=== PATIENT | female | born 1940 | race African-American/Black ===

== ENCOUNTER 2017-10-10 16:54 | Inpatient (IN) | payer MEDICARE ==
[2017-10-10 18:06] LABS: #Eosinphils 0.3 thou/uL (0.0-0.7); #Lymphocytes 1.5 thou/uL (1.20-3.40); #Monocytes 0.2 thou/uL (0.11-0.59); #Neutrophils 3.3 thou/uL (1.40-6.50); %Basophils 0.9 % (0.0-1.0); %Eosinophils 6.4 % (0.0-10.0); %Lymphocytes 28.1 % (21.0-51.0); %Monocytes 3.4 % (0.0-10.0); %Neutrophils 61.2 % (42.0-75.0); Hemoglobin 8.9 g/dL (12.0-16.0); Mean Corpuscular HGB CONC 30.3 g/dL (32.0-36.0); Mean Corpuscular Hemoglobin 30.7 pg (27.0-31.0); Mean Platelet Volume 8.5 fL (7.4-10.4); Platelet Count 357 thou/uL (130-400); RBC Distribution Width 17.7 % (11.5-14.5); White Blood Cell (WBC) Count 5.4 thou/uL (4.8-10.8)
[2017-10-10 18:12] LABS: INR-International Normal Ratio 1.3; PTT 30.7 SEC (22.9-36.1); Prothrombin Time 16.1 SEC (12.0-14.7)
[2017-10-10 18:14] LABS: D-Dimer Test Less than 0.27 *mcg/mL (0.27-0.43)
[2017-10-10 18:23] LABS: ALT (SGPT) 7 U/L (8-55); AST (SGOT) 7 U/L (5-34); Albumin 3.3 g/dL (3.4-4.8); Alkaline Phosphatase 94 U/L (40-150); Anion Gap 12 mmol/L (10-20); BUN (Urea Nitrogen) 13 mg/dL (9.8-20.1); Bilirubin, Total 0.3 mg/dL (0.2-1.2); CK (CPK) 34 U/L (29-168); Calc. Creatinine Clearance 0 mL/min (70-130); Calcium 8.4 mg/dL (7.8-10.44); Carbon Dioxide 23 mmol/L (23-31); Chloride 110 mmol/L (98-107); Estimated GFR-MDRD 84; Globulin 3.6 g/dL (2.4-3.5); Glucose 69 mg/dL (83-110); Lipase 13 U/L (8-78); Potassium 3.2 mmol/L (3.5-5.1); Protein, Total 6.9 g/dL (6.0-8.3); Sodium 142 mmol/L (136-145)
[2017-10-10 18:26] LABS: CKMB 1.1 ng/mL (0-6.6); Troponin I 0.033 ng/mL (< 0.028)
--- NOTE | 2017-10-10 18:34 | RAD ---
PORTABLE CHEST: 10/10/17 HISTORY: Shortness of breath. Chest pain. Heart size is enlarged. Some linear change in the left lung base. In comparison to a 09/23/17 study, c hanges appear slightly more prominent. Still probably related to scar with atelectasis. No signs of f ailure. IMPRESSION: Linear parenchymal changes in the left lung base slightly more prominent than see non the previous ex am. This is probably a combination of scar and possibly atelectasis or minimal developing infiltrate. POS: ROEBRT
[2017-10-10] MEDS ORDERED: Enoxaparin Sodium 80 MG/0.8 ML SYRINGE SC SCH (21:00)
[2017-10-10] MEDS ORDERED: HYDROcodone/Acetaminophen 5/325 mg Tablet PO PRN ×2 (21:14)
[2017-10-10] MEDS ORDERED: Acetaminophen 325 MG TAB PO PRN ×2 (21:14→21:20)
[2017-10-10] MEDS ORDERED: Ondansetron ODT 4 MG TAB SL PRN (21:14)
[2017-10-10] MEDS ORDERED: Ondansetron HCl/PF 4 MG/2 ML Vial IVP PRN (21:14)
[2017-10-10] MEDS ORDERED: Fentanyl 100 MCG/2 ML VIAL SLOW IVP PRN (21:15)
[2017-10-10] MEDS ORDERED: Nitroglycerin 0.4 MG TAB (25 Tab Bottle) PO PRN (21:20)
[2017-10-10] MEDS ORDERED: HYDROcodone/Acetaminophen 7.5/325 mg Tablet PO PRN (21:20)
[2017-10-10] MEDS ORDERED: Carvedilol 3.125 MG TAB PO SCH (21:30)
[2017-10-10] MEDS ORDERED: Famotidine/PF 20 mg/2ml Vial SLOW IVP SCH (21:30)
[2017-10-10 22:07] LABS: Iron 52 ug/dL (50-170); Iron Binding Capacity, Total 178 mcg/dL (265-497)
[2017-10-10 22:12] LABS: Troponin I 0.036 ng/mL (< 0.028)
[2017-10-10 22:22] VITALS: BMI 29.5
--- NOTE | 2017-10-10 23:00 | HP ---
DATE OF ADMISSION: 10/10/2017 CHIEF COMPLAINT: Chest pain. HISTORY OF PRESENT ILLNESS: This is a 77-year-old -[place] female with known history of mult iple myeloma on chemotherapy at Dr. Dumont. She has been recently started 3 months ago on one of t he chemotherapy medications which seem to have a cardiotoxicity effect which was told by Dr. Dumont to the patient. The patient this morning woke up and she was just lying on the bed and she noted a sudden onset of chest pain on the right side of the precordium was not radiating, associated with jake e nausea. The pain was persistent until this evening. It was very tender on her chest. She denied having any fall or anything on that side. She denied having any cough or congestion or any exposure to sick people. She was recently diagnosed with bronchitis and has been treated with azithromycin fo r almost 2 weeks. She now complains of headache of 7/10 in intensity. Headache is more on the right side, the frontal sinuses and also on the maxillary sinuses on the right side. She has a chest pain , which she says is hurting 4-5/10 and is constant pain as I explained above. The patient had initia l troponin that was mildly elevated to 0.03 and her EKG was normal with mild ST segment changes which are not significant at this time. The patient had a chest x-ray which did not show any evidence of pneumonia. PAST MEDICAL HISTORY: Multiple myeloma. PAST SURGICAL HISTORY: History of hysterectomy many years ago. SOCIAL HISTORY: The patient is not a nonsmoker. No history of alcohol, no history of illicit drug u se. FAMILY HISTORY: The patient has significant family history of her brother dying at the age of 50 wit h massive heart attack. ALLERGIES: No known drug allergies. HOME MEDICATIONS: Home medication had been reviewed and reconciled. Please see the medication list. REVIEW OF SYSTEMS: All 12 systems are reviewed with the patient thoroughly and found to be negative at this time except the ones described in the HPI. Constitutional: Weight loss or gain, sense of we ll-being, ability to conduct usual activities, exercise tolerance. Skin/Breast: Rash, itching, quiles ges in hair growth or loss, nail changes, breast lumps, tenderness, swelling, nipple discharge. Eyes : Vision, double vision, tearing, blind spots, pain. ENT/Mouth: Headaches (location, time of onset , duration, precipitating factors), vertigo, lightheadedness, injury. Vision, double vision, tearing, blind spots, pain, nose bleeding, colds, obstruction, discharge, dental difficulties, gingival bleed ing, dentures, neck stiffness, pain, tenderness, masses in thyroid or other areas. Cardiovascular: Precordial pain, substernal distress, palpitations, syncope, dyspnea on exertion, orthopnea, nocturna l paroxysmal dyspnea, edema, cyanosis, hypertension, heart murmurs, varicosities, phlebitis, claudica tion. Respiratory: Pain, shortness of breath, wheezing, stridor, cough, hemoptysis, fever or night sweats. Gastrointestinal: Poor appetite, dysphagia, indigestion, abdominal pain, heartburn, eructat ion, nausea, vomiting, hematemesis, jaundice, constipation, or diarrhea, abnormal stools (lisandra-colore d, tarry, bloody, greasy, foul smelling), flatulence, hemorrhoids, recent changes in bowel habits. G enitourinary: Urgency, frequency, dysuria, nocturia, hematuria, polyuria, oliguria, unusual (or quiles ge in) color of urine, stones, hesitancy, change in size of stream, dribbling, acute retention or inc ontinence, libido, potency. Musculoskeletal: Pain, swelling, redness or heat of muscles or joints, limitation, of motion, muscular weakness, atrophy, cramps. Neurologic/Psychiatric: Convulsions, par alyses, tremor, incoordination, parasthesias, difficulties with memory of speech, sensory or motor di sturbances, or muscular coordination (ataxia, tremor), emotional problems, anxiety, depression, previ ous psychiatric care, unusual perceptions, hallucinations. Allergy/Immunologic: Skin rash, anemia, bleeding tendency, polydipsia, polyuria, intolerance to heat or cold. PHYSICAL EXAMINATION: VITAL SIGNS: Her blood pressure is 130/88, respiratory rate is 18, saturation is 98%. GENERAL: The patient is moderately built and moderately nourished, does not appear to be in acute di stress. CARDIOVASCULAR: S1, S2 normal. No murmurs, rubs or gallops. LUNGS: Bilateral air entry was equal. No wheezing, no crackles. ABDOMEN: Soft, nontender, no guarding, no rebound tenderness. Bowel sounds normal. MUSCULOSKELETAL: No calf tenderness. No pedal edema, no joint tenderness, no joint swelling. SKIN: No cyanosis, no erythema, no rash, no pallor. HOOK LOADER: Cranial nerve examination II-XII intact. No focal deficits are noted. LABORATORY DATA: WBC 5.4, hemoglobin is 8.9, hematocrit is 29.5, platelets are 357. Sodium is 142, potassium 3.2, chloride is 110, bicarbonate is 23, BUN 13, creatinine 0.8. Troponin 0.033. BNP is 2 02. ASSESSMENT: 1. Acute chest pain, rule out myocardial infarction. 2. History of multiple myeloma. 3. Non-ST elevation myocardial infarction. 4. Anemia of iron deficiency. PLAN: 1. Plan is to admit this patient and closely monitor for cardiotoxicity of her chemotherapy medicati on. We will hold off on the chemotherapy medication at this time. We will do a 2D echo to look for any evidence of wall motion abnormality or any evidence of myocarditis. We will repeat troponins bennett ry 6 hours and will consult the Cardiology in the morning. We will also consult Dr. Dumont. 2. We will start the patient on aspirin, beta juliann, and we will hold the Lovenox as the patient h as a positive stool occult blood. 3. The patient has hemoglobin of 8.9 and this has been a concern from the patient's family as she wa s already diagnosed with anemia secondary to multiple myeloma and Dr. Dumont had a plan to start th e patient on iron infusion, but I would leave this for Dr. Dumont to decide on this. At this time, the patient has a stool occult positive and may need GI to be consulted for a colonoscopy. 4. DVT prophylaxis. SCDs. Dictating physician, Chase Mathis, has spent 70 minutes with this patient.
[2017-10-11] MEDS: HYDROcodone/Acetaminophen 10/325 mg Tablet PO SCH ×3 (00:01→15:55)
[2017-10-11] MEDS: Nitroglycerin 2% Ointment 1 INCH/1 GM Packet TOP SCH ×4 (00:05→20:21)
[2017-10-11 00:24] LABS: Troponin I 0.042 ng/mL (< 0.028)
[2017-10-11 05:09] LABS: #Eosinphils 0.4 thou/uL (0.0-0.7); #Lymphocytes 1.3 thou/uL (1.20-3.40); #Monocytes 0.5 thou/uL (0.11-0.59); #Neutrophils 2.2 thou/uL (1.40-6.50); %Basophils 0.7 % (0.0-1.0); %Eosinophils 8.3 % (0.0-10.0); %Monocytes 11.3 % (0.0-10.0); %Neutrophils 49.6 % (42.0-75.0); Hemoglobin 8.3 g/dL (12.0-16.0); Mean Corpuscular HGB CONC 30.7 g/dL (32.0-36.0); Mean Corpuscular Hemoglobin 30.8 pg (27.0-31.0); Mean Platelet Volume 8.5 fL (7.4-10.4); Platelet Count 263 thou/uL (130-400); RBC Distribution Width 17.5 % (11.5-14.5); Red Blood Cell (RBC) Count 2.69 mill/uL (4.20-5.40); White Blood Cell (WBC) Count 4.5 thou/uL (4.8-10.8)
[2017-10-11 05:18] LABS: Anion Gap 6 mmol/L (10-20); BUN (Urea Nitrogen) 12 mg/dL (9.8-20.1); Calc. Creatinine Clearance 74 mL/min (70-130); Carbon Dioxide 27 mmol/L (23-31); Cardiac Risk 3.4 (Less than 4.5); Chloride 113 mmol/L (98-107); Cholesterol 158 mg/dl (< 200 Desired); Estimated GFR-MDRD Greater than 90; Glucose 79 mg/dL (83-110); HDL Cholesterol 46 mg/dL (>60 Neg Risk); LDL Cholesterol, Calculated 98 mg/dL; Potassium 3.3 mmol/L (3.5-5.1); Sodium 143 mmol/L (136-145); Triglycerides 68 mg/dL (Less than 150)
[2017-10-11] MEDS: Enoxaparin Sodium 40 MG/0.4 ML SYRINGE SC SCH (10:04)
[2017-10-11] MEDS: Famotidine/PF 20 mg/2ml Vial SLOW IVP SCH ×2 (10:05→20:13)
[2017-10-11] MEDS: Fluticasone Propionate Nasal Spray 16 gm Bottle NASAL SCH (10:06)
[2017-10-11] MEDS: Oxymetazoline HCl 0.05% ( 15 ML ) NASAL SCH ×2 (10:07→20:13)
[2017-10-11] MEDS ORDERED: HYDROcodone/Acetaminophen 10/325 mg Tablet PO PRN (10:20)
[2017-10-11] MEDS ORDERED: HYDROcodone/Acetaminophen 10/325 mg Tablet PO SCH ×3 (13:45→14:00)
[2017-10-11] MEDS: Carvedilol 3.125 MG TAB PO SCH ×2 (13:51→20:12)
[2017-10-11] MEDS: Aspirin 325 MG TAB PO SCH (13:51)
--- NOTE | 2017-10-11 14:43 | PDOC.PN ---
- Subjective Encounter Start Date: 10/11/17 Encounter Start Time: 11:00 Maty is seen today, alert and oriented. Her Chest pain is intermittant on right precordium, Discussed with Dr. Mcdonough, pt has poorly controlled MM and the Chemo drug has no cardiotoxicity effects. - Objective MAR Reviewed: Yes Vital Signs & Weight: Vital Signs (12 hours) Temp Pulse Resp BP Pulse Ox 10/11/17 12:09 98.9 F 17 94 L 10/11/17 11:59 98.9 F 65 18 145/68 H 94 L 10/11/17 10:57 97 F L 67 18 Result Diagrams: 10/11/17 04:45 10/11/17 04:45 Radiology Reviewed by me: Yes EKG Reviewed by me: Yes Phys Exam - Physical Examination HEENT: PERRLA, moist MMs Neck: no nodes, no JVD Respiratory: no wheezing, no rales Cardiovascular: RRR, no significant murmur Gastrointestinal: soft, non-tender Musculoskeletal: no edema, pulses present Neurological: non-focal, normal sensation Lymphatic: no nodes Psychiatric: normal affect, A&O x 3 Skin: no rash, normal turgor Dx/Plan (1) NSTEMI (non-ST elevated myocardial infarction) Code(s): I21.4 - NON-ST ELEVATION (NSTEMI) MYOCARDIAL INFARCTION Status: Acute Comment: Patient is continued on Apirin, and Discussed with Dr. Mcdonough , suggested to start patient on Eliquis before discharge due to her MM. Pt is on BB, Statin, Echo pending, pending cardiology consult to decide on Stress test or Cath. No lovenox now until GI clears with no active bleeding. (2) Anemia due to blood loss, acute Code(s): D62 - ACUTE POSTHEMORRHAGIC ANEMIA Status: Acute Comment: Maty is Seen by GI today for her stool occult positiveity and Low Hb, may plan for colonoscopy after dischagre. (3) Multiple myeloma not having achieved remission Code(s): C90.00 - MULTIPLE MYELOMA NOT HAVING ACHIEVED REMISSION Status: Acute Comment: Discussed with Dr. Mcdonough, pt has poor control of her MM , recommeded to start on Eliquis at discharge if not contrindicated by GI after colonoscopy. (4) Acute sinusitis Code(s): J01.90 - ACUTE SINUSITIS, UNSPECIFIED Status: Acute Comment: Improved with Flonase and Afrin. - Plan cont current plan of care, plan discussed w/ family, PT/OT, forensic social worker, respiratory therapy, incentive spirometry, out of bed/ambulate, DVT proph w/SCDs * . - Discharge Day Encounter end time: 11:35 Review of Systems - Review of Systems Eyes: Pain, Vision Change ENT: Ear Pain, Ear Discharge Cardiovascular: chest pain, palpitations Gastrointestinal: Nausea, Vomiting Genitourinary: Dysuria, Frequency Musculoskeletal: Neck Pain, Shoulder Pain Skin: Rash, Lesions Neurological: Weakness, Numbness - Medications/Allergies Allergies/Adverse Reactions: Allergies Allergy/AdvReac Type Severity Reaction Status Date / Time No Known Allergies Allergy Unverified 10/10/17 21:00 Medications: Current Medications Acetaminophen (Tylenol) 650 mg PO Q4H PRN PRN Reason: Headache/Fever or Pain Hydrocodone Bitart/Acetaminophen ([place] 7.5/325) 1 tab PO Q4H PRN PRN Reason: Moderate Pain (4-6) Hydrocodone Bitart/Acetaminophen ([place] 10/325) 1 tab PO 0800,1600,2359 [facility] Last Admin: 10/11/17 10:04 Dose: Not Given Hydrocodone Bitart/Acetaminophen ([place] 10/325) 1 tab PO Q8HR PRN PRN Reason: Pain Hydrocodone Bitart/Acetaminophen ([place] 10/325) 2 tab PO 1345 [facility] Stop: 10/11/17 15:00 Last Admin: 10/11/17 14:04 Dose: 2 tab Aspirin (Aspirin) 325 mg PO DAILY [facility] Last Admin: 10/11/17 13:51 Dose: 325 mg Carvedilol (Coreg) 3.125 mg PO BID [facility] Last Admin: 10/11/17 13:51 Dose: 3.125 mg Dexamethasone (Decadron) 20 mg PO Q7D@0900 [facility] Enoxaparin Sodium (Lovenox) 40 mg SC 0900 [facility] Last Admin: 10/11/17 10:04 Dose: 40 mg Famotidine (Pepcid) 20 mg SLOW IVP Q12HR [facility] Last Admin: 10/11/17 10:05 Dose: 20 mg Ferrous Sulfate (Feosol) 325 mg PO BID-[facility] Fluticasone Propionate (Flonase Nasal [place]) 0 gm NASAL DAILY [facility] Last Admin: 10/11/17 10:06 Dose: 1 spr Furosemide (Lasix) 40 mg SLOW IVP DAILY [facility] Hydralazine HCl (Apresoline) 5 mg PO BID [facility] Mirtazapine (Remeron) 7.5 mg PO HS [facility] Nitroglycerin (Nitro-Bid 2% Ointment) 0.5 inch TOP Q8HR [facility] Last Admin: 10/11/17 13:53 Dose: Not Given Nitroglycerin (Nitrostat) 0.4 mg PO Q5MIN PRN PRN Reason: Chest Pain Ondansetron HCl (Zofran) 4 mg IVP Q6H PRN PRN Reason: Nausea/Vomiting Oxymetazoline HCl (Oxymetazoline Hcl) 0 sprays NASAL BID [facility] Stop: 10/13/17 21:01 Last Admin: 10/11/17 10:07 Dose: 1 spr Pantoprazole Sodium (Protonix) 40 mg PO 2100 [facility] Potassium Chloride (K-Dur) 20 meq PO QAM-WM [facility] Pregabalin (Lyrica) 150 mg PO TID [facility] Sodium Chloride (Flush - Normal Saline) 10 ml IVF Q12HR [facility] Last Admin: 10/11/17 10:07 Dose: 10 ml Sodium Chloride (Flush - Normal Saline) 10 ml IVF PRN PRN PRN Reason: Saline Flush
--- NOTE | 2017-10-11 15:35 | CON ---
DATE OF CONSULTATION: 10/11/2017 CARDIOLOGY CONSULTATION REASON FOR CONSULTATION: Chest pain. HISTORY OF PRESENT ILLNESS: Mrs. Pratt is a very pleasant 77-year-old -[place] female, who comes to the hospital for chest pain. She has been diagnosed with multiple myeloma and recently was started by Dr. Dumont on a new medication. I do not have it on any list available and TG does not remember the name. She was told that it could be cardiotoxic. She started having chest pain after she started taking it yesterday. She states the pain lasts anywhere from 10 minutes to an hour at a time. It is in the midsternal area and then it is just goes away, not related to any exertional or f ood ingestion. She came in for further evaluation of this. She also was complaining of a headache a nd recently she was diagnosed with bronchitis. PAST MEDICAL HISTORY: 1. Multiple myeloma. 2. Gastroesophageal reflux disease. OUTPATIENT MEDICATIONS: 1. Lasix 40 mg 3 times a week. 2. Omeprazole 40 mg a day. 3. Potassium chloride 20 mEq a day. 4. Lyrica 150 mg 3 times a day. 5. Hydrocodone with acetaminophen 10/325 p.r.n. pain. 6. Pomalyst 4 mg a day, this is probably the new medication. 7. Hydralazine 10 mg twice a day. 8. Dexamethasone. 9. Xarelto 20 mg a day. Family and her are not aware of why she is on a blood thinner. 10. Mirtazapine. 11. Citalopram. ALLERGIES: No known drug allergies. SOCIAL HISTORY: No alcohol, tobacco or drugs. PAST SURGICAL HISTORY: Hysterectomy. FAMILY HISTORY: Brother of massive CA at age 50. REVIEW OF SYSTEMS: A 12-point review of systems was done and is all negative unless stated in the hi story of present illness. PHYSICAL EXAMINATION: VITAL SIGNS: Temperature 98.9, pulse 65, respiratory rate 18, sats 94% on room air, blood pressure 1 45/68. GENERAL: Awake, alert, oriented x3, in no distress. HEENT: Normocephalic, atraumatic. NECK: Supple. LUNGS: Clear. CARDIOVASCULAR: S1, S2, no S3, S4. No murmurs, no rubs. ABDOMEN: Soft, positive bowel sounds. EXTREMITIES: No edema. SKIN: Warm and dry. LABORATORY WORK: Reviewed. White count of 5.4, hemoglobin of 8.9, hematocrit of 29, platelet count of 357. Coags were reviewed. Chemistries were reviewed. Potassium was low at 3.3, chloride of 113, carbon dioxide 27 with normal sodium. BUN 12, creatinine 0.74, GFR greater than 90, glucose was 79. BNP was 202. Troponin has been indeterminate at 0.03, 0.03, and 0.04 with normal CK-MBs. Triglyce rides of 68, cholesterol of 158, LDL of 98, HDL of 46. Lipase of 13. EKG was reviewed. Echocardiogram was reviewed. Chest x-ray was reviewed. ASSESSMENT AND PLAN: 1. Chest pain: Atypical in nature. She has a normal echocardiogram. EKG shows no ischemia. At th is point in time, her symptoms started after being diagnosed with bronchitis and started on this medi cation for multiple myeloma. We will hold this medication for now. I will get a hold of Dr. Mehreen best to see if he knows the reason why she is on blood thinner, may be related to risk of thromboembolis m for multiple myeloma; however, this is unclear. She tells me that she has never had any problems w ith her heart in the past. 2. We will plan on doing a nuclear stress test tomorrow to evaluate for possible ischemia. 3. No acute coronary syndrome at this time. No indication for full anticoagulation from the cardiac standpoint as far as I know at this time. I would continue Xarelto as she has been on it for some t deandre now, I am unsure why at this point. Thank you for letting us to participate in the care of your patient. We will follow.
--- NOTE | 2017-10-11 16:11 | RAD ---
BILATERAL RIBS THREE VIEWS: History: Ductal upper medial chest pain. FINDINGS/IMPRESSION: Heart size is enlarged. No infiltrative process is present. The bones appear slightly demineralized. No pneumothorax. No evidence of rib fractures. No lytic or blastic bony change. There is a scoliotic change to the spine. Incidental note of some mild compression changes of T12 and what appear to be some lesser changes at T9, T10, and possibly T11. No lytic bone lesions demonstrated. POS: KRYSTAL
[2017-10-11] MEDS: Ferrous Sulfate 325 MG TAB PO SCH (17:38)
[2017-10-11] MEDS: Pregabalin 75 MG CAP PO SCH (20:10)
[2017-10-11] MEDS: hydrALAZINE 10 MG TAB PO SCH (20:11)
[2017-10-11] MEDS: Mirtazapine 15 MG TAB PO SCH (20:12)
[2017-10-11] MEDS: Ondansetron HCl/PF 4 MG/2 ML Vial IVP PRN (20:35)
--- NOTE | 2017-10-11 23:15 | CON ---
DATE OF CONSULTATION: 10/11/2017 REFERRING PHYSICIAN: [facility] Chase Mathis[facility] REASON FOR CONSULTATION: Anemia, occult GI bleeding. HISTORY OF PRESENT ILLNESS: Ms. Shreya Pratt is a very pleasant 77-year-old -[place] female hospitalized with chest pain and also severe headache. The patient is hard of hearing. Most of the history was obtained from the medical history by Dr. Mathis and also by talking to the patient's daug hter who is in the room. The patient apparently has had multiple myeloma of nearly 8 to 9 years. jean paul has been seeing Dr. Dumont. Initially, she was on chemotherapy for a while, which was changed re cently. The patient's daughter does not remember medications what she is taking for multiple myeloma . But for the multiple myeloma, he looks very healthy and had a recent admission for pneumonia. The patient was found to have anemia on admission. Her hemoglobin is 8.3. However, going over the [facility], even her last admission as much as 2015, she was also anemic. In 2016, the hemoglobin was 8.9 and at this time it is about 8.3. The patient has no history of overt gastrointestinal bleeding. De nies history of any hematochezia or any melena. She has no abdominal pain, no nausea or vomiting. H er chest pain when she came yesterday has resolved. She has no more chest pain. Also, she has more headache. The patient never had a colonoscopy in the past. Also, the family history of any colon ca ncer. Other relevant history that she had a deep vein thrombosis I believe in 2013 and was on Xarelt o for a few months. She has no heartburn, indigestion, any abdominal pain. No history of dysphagia or odynophagia. She has no other relevant history. ALLERGIES: None. SOCIAL HISTORY: Patient does not smoke or drink alcohol. MEDICAL ILLNESSES: 1. Multiple myeloma on chemotherapy and she has had this for about 8 to 9 years. 2. History of remote pneumonia. 3. History of deep vein thrombosis and was on Xarelto for six months in 2013. No history of coronar y artery disease, diabetes, COPD, etc. SURGERIES: The only surgery she had was a hysterectomy. No relevant surgical history. FAMILY HISTORY: Brother of a massive heart attack at age 50. There is no family history of can cer. No family history of any diabetes, lung disease. MEDICATIONS: List reviewed. REVIEW OF SYSTEMS: Constitutional: No history of fever. No weight loss, fatigue, tiredness. Respi ratory system: No history of chronic cough, hemoptysis, dyspnea. Cardiovascular system: History of chest pain. The pain is atypical. The pain is more over the right precordial area. She is also te nder on physical examination to touch. No history of palpitation, no dyspnea, orthopnea or PND. Gas trointestinal: No relevant history. Genitourinary: No dysuria or hematuria. Musculoskeletal, endo crine, neurological: Not known. Neurologic and psychiatric: No depression, anxiety. PATTERN SETTER: No hist ory of TIA, no syncope, but she is hard of hearing. PHYSICAL EXAMINATION: GENERAL: Patient appears very comfortable. She is awake, alert, and communicative. However, she is hard of hearing and most of the history was obtained from the patient's daughter. VITAL SIGNS: Afebrile, pulse is 92, blood pressure 164/74. HEENT: Conjunctivae clear. NECK: Supple. No adenitis or thyromegaly noted. CARDIOVASCULAR SYSTEM: First and second heart sounds. LUNGS: Clear to auscultation. ABDOMEN: Soft to palpate. Abdomen is nondistended. Abdomen is nontender. There is no organomegaly or masses. Bowel sounds normal. EXTREMITIES: Reveal no edema. LABORATORY DATA: Shows WBC of 5400, hemoglobin 8.9 yesterday it was 8.3, MCV 102, platelet count is 357,000, polymorphs 61, lymphocytes 28. Serum chemistry; sodium 143, potassium 3.3, chloride 113, bi carbonate 27, BUN is 12, creatinine 0.74, glucose is 79, calcium is 8, serum iron is 12, TIBC is low at 178. Troponin level is 0.36 yesterday, today 0.42. BNP: 202, lipid panel is normal. The stool for occult blood came back positive. CLINICAL IMPRESSION: 1. A 77-year-old black female with a history of multiple myeloma for many years. She has had anemia from before. The anemia is nothing new. During the last admission, her blood count was high at 5.9 , today is 8.9, 8.3. There is no overt gastrointestinal bleeding, stool guaiac came back positive. 2. Chest pain workup pending. 3. Status post hysterectomy. PLAN: We will await Cardiology input, and if the cardiac status is stable, we will plan for a colono scopy and for an EGD and discharge. In the meantime, would recommend followup H and H and transfuse p.r.n.
[2017-10-12] MEDS: HYDROcodone/Acetaminophen 10/325 mg Tablet PO SCH ×3 (00:07→15:18)
--- NOTE | 2017-10-12 00:32 | CON ---
DATE OF CONSULTATION: 10/11/2017 REASON FOR CONSULTATION: Multiple myelomas, anemia. HISTORY OF PRESENT ILLNESS: This is a 77-year-old -[place] female who was diagnosed IgGk gm underwood in 01/2009. Since then she has been on chemotherapy regimens that include thalidomide; Velcade, Cytoxan, and Decadron; Revlimid and Decadron; and most recently, she has been on pomalidomide for th e past five months starting on 05/07/2017. Recently, there has been increasing monoclonal protein le choco indicating disease progression on this regimen. In 12/2013, she presented with extensive left lo wer extremity DVT and was started Xarelto on 12/13/2013. Xarelto was discontinued 06/21/2014, but palomares d to be restarted in July because of recurrence of DVT. Since then she has been on Xarelto. The patient is also followed by Dr. Rader for back pain, felt to be mostly from degenerative joint disease. She is also followed by palliative care team from [facility]. The patient was admitted ye sterday with pain in the left upper parasternal area that apparently started suddenly. She denies si gnificant pain in any other bones. The patient apparently had a stool positive for occult blood in [facility] emergency room. She has never had colonoscopy and has been anemic. She has been asked several ti mes to get colonoscopy, but she has been putting it off with different excuses apparently trying not to have it done. OUTPATIENT MEDICATIONS: Xarelto 20 mg a day, Celexa 20 mg p.o. daily, Decadron 20 mg p.o. once a wee k, ferrous sulfate 325 mg p.o. once daily, Lasix 40 mg p.r.n., hydralazine 10 mg p.o. b.i.d., omepraz ole 40 mg p.o. once daily, potassium chloride ER 20 mEq once a day, Xanax 0.25 mg p.o. daily, Pomalys t 4 mg daily for 3/4 weeks. DRUGS WITH ADVERSE EFFECT: PENICILLIN. PAST MEDICAL HISTORY: Positive for hysterectomy, DVT, anemia, and multiple myeloma. PERSONAL AND SOCIAL HISTORY: The patient is a . She has never smoked and does not drink. PHYSICAL EXAMINATION: GENERAL: The patient appears appropriate for her age. She is alert and oriented. Affect-hardin, she appears somewhat withdrawn, but answers questions appropriately at times on repeated questioning. VITAL SIGNS: Height 5 feet 3 inches, weight 164 pounds. Body surface area 1.82 meters squared. Tem perature 98.6, pulse 67, respirations 18, blood pressure 133/60. HEENT: Unremarkable. LYMPHATICS: There is no peripheral lymphadenopathy in cervical, supraclavicular, axillary or inguina l area. CHEST: Clear to percussion and auscultation. There is distinct tenderness over the bones, namely ri bs and sternum in the upper left parasternal area. HEART: Regular rhythm. S1 and S2. ABDOMEN: Soft, without hepatosplenomegaly. Bowel sounds normal. EXTREMITIES: Without pedal edema or calf tenderness. LABORATORY AND DIAGNOSTIC DATA: CBC shows WBC 4500, hemoglobin 8.3 grams, and platelet count of 263, 000. Differential showed 49.6% neutrophils and 30% lymphocytes. Chemistry profile shows abnormal va lues of potassium of 3.3. Serum creatinine is 0.74 with EGFR of 90. Albumin 3.3, globulin 3.6. Isha er enzymes are normal. Chest x-ray showed linear parenchymal changes in the left lung base, slightly more prominent than on the chest x-ray of 09/23/2017. These films did not show any lytic lesions of myeloma or rib fractures, though there is osteoporosis. ASSESSMENT AND RECOMMENDATIONS: This patient has IgG kappa myeloma for 9 years duration. She has fa iled 4 different regimens. Currently, she is on Pomalyst which she does not really have any signific ant cardiac toxicity and is not associated with bone pain as such. It is associated with increased r isk of venous and arterial thrombosis. 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 She did not have colonoscopy in the [facility], so colonoscopy should be performed because of unexplained anemia with stool positive for occult b lood. She is showing early signs of disease progression while on Pomalyst and might have to be switc hed to different regimen for multiple myeloma. Thanks very much for asking me to participate in this patient's care. I will follow along with you.
[2017-10-12] MEDS: Nitroglycerin 2% Ointment 1 INCH/1 GM Packet TOP SCH ×3 (05:33→20:50)
[2017-10-12] MEDS: Furosemide 40 MG/4 ML VIAL SLOW IVP SCH (11:30)
[2017-10-12] MEDS: hydrALAZINE 10 MG TAB PO SCH ×2 (11:30→20:42)
[2017-10-12] MEDS: Famotidine/PF 20 mg/2ml Vial SLOW IVP SCH (11:30)
[2017-10-12] MEDS: Potassium Chloride 20 MEQ TAB PO SCH (11:30)
[2017-10-12] MEDS: Carvedilol 3.125 MG TAB PO SCH ×2 (11:31→20:42)
[2017-10-12] MEDS: Aspirin 325 MG TAB PO SCH (11:31)
[2017-10-12] MEDS: Ferrous Sulfate 325 MG TAB PO SCH ×2 (11:31→17:41)
[2017-10-12] MEDS: Enoxaparin Sodium 40 MG/0.4 ML SYRINGE SC SCH (11:32)
[2017-10-12] MEDS: Fluticasone Propionate Nasal Spray 16 gm Bottle NASAL SCH (11:33)
[2017-10-12] MEDS: Oxymetazoline HCl 0.05% ( 15 ML ) NASAL SCH ×2 (11:33→20:45)
[2017-10-12] MEDS: Pregabalin 75 MG CAP PO SCH ×3 (11:33→20:43)
--- NOTE | 2017-10-12 12:52 | NM ---
CARDIAC SPECT: CLINICAL HISTORY: 77-year-old female with chest pain. History of coronary artery disease. TECHNIQUE: A myocardial perfusion scan was performed using the single isotope one day protocol with technetium-9 9m sestamibi. 10 mCi were injected intravenously for the rest exam followed by 30 mCi for the stress exam. Pharmacologic stress with Adenosine was monitored and interpreted by Samaria Armenta. FINDINGS: Homogeneous tracer distribution is seen in the myocardial segments on stress and rest images without fixed or reversible defects. GATED SPECT LVEF: 69%. WALL MOTION EXAM: Normal. IMPRESSION: Normal myocardial perfusion scan. POS: ROBERT
[2017-10-12] MEDS ORDERED: ADENOSINE 60 MG/20 ML VIAL ONE (17:05)
--- NOTE | 2017-10-12 19:58 | PDOC.PN ---
- Subjective Encounter Start Date: 10/12/17 Encounter Start Time: 17:00 Subjective: nsg notes rev, pia ovn, dtr @ bedside, pt no new c/o, denies CP - Objective Vital Signs & Weight: Vital Signs (12 hours) Temp Pulse Pulse Pulse Resp BP BP 10/12/17 15:12 96.9 F L 63 16 10/12/17 14:00 68 73 145/68 H 127/60 10/12/17 11:41 97.1 F L 65 17 10/12/17 11:30 62 10/12/17 08:00 97.5 F L 62 18 BP Pulse Ox 10/12/17 15:12 140/64 96 10/12/17 14:00 10/12/17 11:41 142/68 H 96 10/12/17 11:30 10/12/17 08:00 156/70 H 95 I&O: 10/11/17 10/12/17 10/13/17 06:59 06:59 06:59 Intake Total 360 300 Output Total 650 300 Balance -290 0 Result Diagrams: 10/11/17 04:45 10/11/17 04:45 Phys Exam - Physical Examination Constitutional: NAD HEENT: PERRLA, moist MMs, sclera anicteric Respiratory: no wheezing, no rales, no rhonchi Cardiovascular: RRR, no significant murmur, no rub Gastrointestinal: soft, non-tender, positive bowel sounds Neurological: moves all 4 limbs Dx/Plan - Plan * chest pain w/ elevated troponin * appreciate cardiology c/s * unrevealing nuclear stress test - results reviewed with patient and family hemoccult + stool * apprec GI c/s * ? colo/ EGD timing in the setting of recent xarelto use for hx of DVTs hx multiple myeloma on chemotherapeutic regimen * apprec oncology c/s * as per oncology re: chemotherapy diet: as tolerated activity: as tolerated d/w patient's daughter at length Review of Systems - Medications/Allergies Allergies/Adverse Reactions: Allergies Allergy/AdvReac Type Severity Reaction Status Date / Time No Known Allergies Allergy Unverified 10/10/17 21:00 Medications: Current Medications Acetaminophen (Tylenol) 650 mg PO Q4H PRN PRN Reason: Headache/Fever or Pain Hydrocodone Bitart/Acetaminophen ([place] 7.5/325) 1 tab PO Q4H PRN PRN Reason: Moderate Pain (4-6) Hydrocodone Bitart/Acetaminophen ([place] 10/325) 1 tab PO 0800,1600,2359 [facility] Last Admin: 10/12/17 15:18 Dose: Not Given Hydrocodone Bitart/Acetaminophen ([place] 10/325) 1 tab PO Q8HR PRN PRN Reason: Pain Aspirin (Aspirin) 325 mg PO DAILY [facility] Last Admin: 10/12/17 11:31 Dose: 325 mg Carvedilol (Coreg) 3.125 mg PO BID [facility] Last Admin: 10/12/17 11:31 Dose: 3.125 mg Dexamethasone (Decadron) 20 mg PO Q7D@0900 [facility] Enoxaparin Sodium (Lovenox) 40 mg SC 0900 [facility] Last Admin: 10/12/17 11:32 Dose: 40 mg Famotidine (Pepcid) 20 mg PO BID [facility] Ferrous Sulfate (Feosol) 325 mg PO BID[facility] Last Admin: 10/12/17 17:41 Dose: 325 mg Fluticasone Propionate (Flonase Nasal [place]) 0 gm NASAL DAILY [facility] Last Admin: 10/12/17 11:33 Dose: 1 spr Furosemide (Lasix) 40 mg SLOW IVP DAILY [facility] Last Admin: 10/12/17 11:30 Dose: 40 mg Hydralazine HCl (Apresoline) 5 mg PO BID [facility] Last Admin: 10/12/17 11:30 Dose: 5 mg Mirtazapine (Remeron) 7.5 mg PO HS [facility] Last Admin: 10/11/17 20:12 Dose: 7.5 mg Nitroglycerin (Nitro-Bid 2% Ointment) 0.5 inch TOP Q8HR [facility] Last Admin: 10/12/17 15:17 Dose: Not Given Nitroglycerin (Nitrostat) 0.4 mg PO Q5MIN PRN PRN Reason: Chest Pain Ondansetron HCl (Zofran) 4 mg IVP Q6H PRN PRN Reason: Nausea/Vomiting Last Admin: 10/11/17 20:35 Dose: 4 mg Oxymetazoline HCl (Oxymetazoline Hcl) 0 sprays NASAL BID [facility] Stop: 10/13/17 21:01 Last Admin: 10/12/17 11:33 Dose: 1 spr Pantoprazole Sodium (Protonix) 40 mg PO 2100 [facility] Last Admin: 10/11/17 20:11 Dose: 40 mg Potassium Chloride (K-Dur) 20 meq PO QAM-WM [facility] Last Admin: 10/12/17 11:30 Dose: 20 meq Pregabalin (Lyrica) 150 mg PO TID [facility] Last Admin: 10/12/17 15:16 Dose: 150 mg Sodium Chloride (Flush - Normal Saline) 10 ml IVF Q12HR [facility] Last Admin: 10/12/17 11:34 Dose: 10 ml Sodium Chloride (Flush - Normal Saline) 10 ml IVF PRN PRN PRN Reason: Saline Flush
--- NOTE | 2017-10-12 20:28 | PDOC.CTH ---
Cardiology Progress Note - Subjective No chest pain. No other issues. - Objective Vital Signs Temp Pulse Pulse Pulse Resp BP BP 10/12/17 15:12 96.9 F L 63 16 10/12/17 14:00 68 73 145/68 H 127/60 10/12/17 11:41 97.1 F L 65 17 10/12/17 11:30 62 BP Pulse Ox 10/12/17 15:12 140/64 96 10/12/17 14:00 10/12/17 11:41 142/68 H 96 10/12/17 11:30 10/11/17 10/12/17 10/13/17 06:59 06:59 06:59 Intake Total 360 300 Output Total 650 300 Balance -290 0 - Physical Examination General/Neuro: alert & oriented x3, NAD Neck: no JVD present Lungs: CTA, unlabored respirations Heart: RRR Abdomen: NT/ND Extremities: other: (no edema.) - Telemetry Telemetry Rhythm: NSR - Labs Result Diagrams: 10/11/17 04:45 10/11/17 04:45 Troponin/CKMB CK-MB (CK-2) 1.1 ng/mL (0-6.6) 10/10/17 17:54 Troponin I 0.042 ng/mL (< 0.028) H 10/10/17 23:52 - Assessment/Plan 1. Chest pain. 2. Multiple myeloma. PLAN: - Stress test normal. - Non cardiac causes of chest pain for now. - Consider GI evaluation. - Replace K - Will sign off. Please call with any questions.
[2017-10-12] MEDS: Famotidine 20 MG TAB PO SCH (20:42)
[2017-10-12] MEDS: Mirtazapine 15 MG TAB PO SCH (20:42)
[2017-10-13] MEDS: HYDROcodone/Acetaminophen 10/325 mg Tablet PO SCH ×3 (05:35→16:12)
[2017-10-13] MEDS: Nitroglycerin 2% Ointment 1 INCH/1 GM Packet TOP SCH ×3 (05:35→21:58)
[2017-10-13] MEDS ORDERED: GoLYTELY 4,000 ml Bottle PO SCH (06:00)
[2017-10-13] MEDS: Fluticasone Propionate Nasal Spray 16 gm Bottle NASAL SCH (09:07)
[2017-10-13] MEDS: Oxymetazoline HCl 0.05% ( 15 ML ) NASAL SCH ×2 (09:07→22:00)
[2017-10-13] MEDS: Furosemide 40 MG/4 ML VIAL SLOW IVP SCH (09:07)
--- NOTE | 2017-10-13 09:07 | PRG ---
DATE OF SERVICE: 10/12/2017 SUBJECTIVE: Ms. Shreya Pratt is a very pleasant 77-year-old -[place] female hospitalized ov er the weekend with abdominal chest pain. The patient's troponin level was slightly elevated. The p atient underwent cardiology evaluation and the cardiac stress test came back negative. The patient h as no more chest pain. On admission, she was found to have anemia and also occult GI bleeding. The patient's Xarelto has been withheld since yesterday. I did speak to Dr. Snyder about the cardiac str ess testing and he says she has no heart disease and felt that she should be able to take the colonos copy. The patient appears very comfortable and in no distress. Denies any chest pain, abdominal juan j n. OBJECTIVE: GENERAL: She is awake, alert, and communicative, but she is hard of hearing. VITAL SIGNS: Stable. Pulse is 70, blood pressure 150/70. CARDIOVASCULAR AND LUNGS: Within normal limits. ABDOMEN: Soft to palpate. No organomegaly. No tenderness. No masses. CLINICAL IMPRESSION: 1. Anemia, occult gastrointestinal bleeding. 2. Chest pain, noncardiac. 3. Multiple myeloma, longstanding. PLAN: We will prep the patient for colonoscopy tomorrow. If the colonoscopy is negative, we may con spot welder EGD at the same time.
[2017-10-13] MEDS: Potassium Chloride 20 MEQ TAB PO SCH ×2 (10:51→16:09)
[2017-10-13] MEDS: Ferrous Sulfate 325 MG TAB PO SCH ×2 (10:51→16:09)
[2017-10-13] MEDS: Aspirin 325 MG TAB PO SCH (10:51)
[2017-10-13] MEDS: Enoxaparin Sodium 40 MG/0.4 ML SYRINGE SC SCH (10:52)
[2017-10-13] MEDS: Famotidine 20 MG TAB PO SCH ×3 (10:52→21:59)
[2017-10-13] MEDS: Pregabalin 75 MG CAP PO SCH ×3 (10:52→21:59)
[2017-10-13] MEDS: Ondansetron HCl/PF 4 MG/2 ML Vial IVP PRN (11:24)
[2017-10-13] MEDS: Carvedilol 3.125 MG TAB PO SCH ×2 (11:24→21:59)
[2017-10-13] MEDS: hydrALAZINE 10 MG TAB PO SCH ×2 (11:24→21:58)
[2017-10-13] MEDS: Mirtazapine 15 MG TAB PO SCH (21:58)
--- NOTE | 2017-10-13 23:43 | PDOC.PN ---
- Subjective Encounter Start Date: 10/13/17 Encounter Start Time: 17:00 Subjective: nsg notes rev, pia ovn, no new c/o -visiting with family friend - Objective Vital Signs & Weight: Vital Signs (12 hours) Temp Pulse Resp BP Pulse Ox 10/13/17 15:55 97.5 F L 73 16 132/67 96 I&O: 10/12/17 10/13/17 10/14/17 06:59 06:59 06:59 Intake Total 360 300 720 Output Total 650 300 Balance -290 0 720 Result Diagrams: 10/11/17 04:45 10/15/17 13:20 Phys Exam - Physical Examination Constitutional: NAD HEENT: PERRLA, moist MMs, sclera anicteric Respiratory: no wheezing, no rales, no rhonchi limited ant exam Cardiovascular: RRR, no significant murmur, no rub Gastrointestinal: positive bowel sounds Dx/Plan - Plan * chest pain w/ elevated troponin * appreciate cardiology c/s * unrevealing nuclear stress test - results reviewed with patient and family hemoccult + stool * apprec GI c/s * plan for endoscopy once completes prep - concern for blood loos with of recent xarelto use for hx of DVTs hx multiple myeloma on chemotherapeutic regimen * apprec oncology c/s * as per oncology re: chemotherapy diet: as tolerated activity: as tolerated Review of Systems - Medications/Allergies Allergies/Adverse Reactions: Allergies Allergy/AdvReac Type Severity Reaction Status Date / Time No Known Allergies Allergy Unverified 10/10/17 21:00
--- NOTE | 2017-10-14 01:43 | PRG ---
DATE OF SERVICE: 10/13/2017 SUBJECTIVE: This is a 77-year-old female with anemia, occult gastrointestinal bleed ing. The patient hospitalized over the weekend with chest pain and headache. Did have positive trop onin level. However, the cardiac stress test came back negative. Dr. Snyder felt the patient would benefit from colonoscopy. The patient had GoLYTELY this morning she barely drink one-half cup of GoLYTELY. She is very sleepy and although she arousable very easily. She drinks couple of sips o f GoLYTELY and goes back to sleep again. Apparently, the nurses have been trying to make her drink G oLYTELY from 6:00. They were not successful. She has drunk less than one cup of GoLYTELY over 4 niesha rs. It appears the colonoscopy cannot be done today. OBJECTIVE: GENERAL: She is sleeping, very arousable and does communicate. VITAL SIGNS: Stable. CARDIOVASCULAR: Within normal limits. LUNGS: Within normal limits. ABDOMEN: Soft to palpate. Abdomen is nontender ASSESSMENT AND PLAN: 1. Continue clear liquid diet. 2. Encourage GoLYTELY intake as much as possible. 3. If she is cleaned out by tomorrow, can pursue colonoscopy hopefully tomorrow. If colonoscopy is negative, we will consider EGD at the same time because of the anemia and also occult gastrointestina l bleeding.
[2017-10-14] MEDS: HYDROcodone/Acetaminophen 10/325 mg Tablet PO SCH ×4 (03:35→22:30)
[2017-10-14] MEDS: Nitroglycerin 2% Ointment 1 INCH/1 GM Packet TOP SCH ×3 (06:55→22:30)
[2017-10-14] MEDS: Ferrous Sulfate 325 MG TAB PO SCH ×2 (08:43→15:36)
[2017-10-14] MEDS: Fluticasone Propionate Nasal Spray 16 gm Bottle NASAL SCH (08:47)
[2017-10-14] MEDS: Furosemide 40 MG/4 ML VIAL SLOW IVP SCH (08:48)
[2017-10-14] MEDS: Enoxaparin Sodium 40 MG/0.4 ML SYRINGE SC SCH (08:50)
[2017-10-14] MEDS: Carvedilol 3.125 MG TAB PO SCH ×2 (08:50→22:30)
[2017-10-14] MEDS: Famotidine 20 MG TAB PO SCH ×2 (08:56→22:30)
[2017-10-14] MEDS: Potassium Chloride 20 MEQ TAB PO SCH (08:56)
[2017-10-14] MEDS: Pregabalin 75 MG CAP PO SCH ×2 (08:56→14:04)
[2017-10-14] MEDS: hydrALAZINE 10 MG TAB PO SCH (08:56)
[2017-10-14] MEDS: Aspirin 325 MG TAB PO SCH (08:56)
[2017-10-14] MEDS ORDERED: PROPOFOL 200 MG/20 ML VIAL ONE (16:00)
[2017-10-14] MEDS ORDERED: Lidocaine 1% PF 5 ML VIAL ONE (16:00)
[2017-10-14] MEDS ORDERED: PHENYLEPHRINE-NS 100 MCG/ML 10 ML SYRINGE ONE (16:00)
[2017-10-14] MEDS ORDERED: Ondansetron HCl/PF 4 MG/2 ML Vial IVP PRN (19:26)
[2017-10-14] MEDS ORDERED: Promethazine HCl 25 MG/ML VIAL SLOW IVP PRN (19:26)
[2017-10-14] MEDS ORDERED: Promethazine HCl 25 MG/ML VIAL IM PRN (19:26)
--- NOTE | 2017-10-14 23:34 | PDOC.PN ---
- Subjective Encounter Start Date: 10/14/17 Encounter Start Time: 15:00 Subjective: nsg notes rev, pia ovn, granddtr at bedside. insufficient prep for colo -: pt does not like the taste of golytely - Objective I&O: 10/13/17 10/14/17 10/15/17 06:59 06:59 06:59 Intake Total 300 720 Output Total 300 Balance 0 720 Result Diagrams: 10/11/17 04:45 10/15/17 13:20 Phys Exam - Physical Examination Constitutional: NAD HEENT: PERRLA, moist MMs, sclera anicteric Neck: no nodes Respiratory: no wheezing, no rales, no rhonchi, clear to auscultation bilateral Cardiovascular: RRR, no significant murmur, no rub Gastrointestinal: soft, positive bowel sounds Musculoskeletal: pulses present Neurological: moves all 4 limbs Psychiatric: normal affect Dx/Plan - Plan * chest pain w/ elevated troponin * appreciate cardiology c/s * unrevealing nuclear stress test - results reviewed with patient and family hemoccult + stool * apprec GI c/s * plan for endoscopy once completes prep - concern for blood loos with of recent xarelto use for hx of DVTs * encouraged completion of bowel prep hx multiple myeloma on chemotherapeutic regimen * apprec oncology c/s * as per oncology re: chemotherapy on an outpatient basis diet: as tolerated activity: as tolerated d/w pt's granddaughter at bedside greater than 30 min spent at bedside coordinating care Review of Systems - Medications/Allergies Allergies/Adverse Reactions: Allergies Allergy/AdvReac Type Severity Reaction Status Date / Time No Known Allergies Allergy Unverified 10/10/17 21:00 Medications: Current Medications Acetaminophen (Tylenol) 650 mg PO Q4H PRN PRN Reason: Headache/Fever or Pain Hydrocodone Bitart/Acetaminophen ([place] 7.5/325) 1 tab PO Q4H PRN PRN Reason: Moderate Pain (4-6) Hydrocodone Bitart/Acetaminophen ([place] 10/325) 1 tab PO 0800,1600,2359 [facility] Last Admin: 10/14/17 14:05 Dose: Not Given Hydrocodone Bitart/Acetaminophen ([place] 10/325) 1 tab PO Q8HR PRN PRN Reason: Pain Aspirin (Aspirin) 325 mg PO DAILY [facility] Last Admin: 10/14/17 08:56 Dose: Not Given Carvedilol (Coreg) 3.125 mg PO BID [facility] Last Admin: 10/14/17 08:50 Dose: 3.125 mg Dexamethasone (Decadron) 20 mg PO Q7D@0900 [facility] Enoxaparin Sodium (Lovenox) 40 mg SC 0900 [facility] Last Admin: 10/14/17 08:50 Dose: 40 mg Famotidine (Pepcid) 20 mg PO BID [facility] Last Admin: 10/14/17 08:56 Dose: Not Given Ferrous Sulfate (Feosol) 325 mg PO BID[facility] Last Admin: 10/14/17 15:36 Dose: Not Given Fluticasone Propionate (Flonase Nasal [place]) 0 gm NASAL DAILY [facility] Last Admin: 10/14/17 08:47 Dose: 1 spr Furosemide (Lasix) 40 mg SLOW IVP DAILY [facility] Last Admin: 10/14/17 08:48 Dose: 40 mg Hydralazine HCl (Apresoline) 5 mg PO BID [facility] Last Admin: 10/14/17 08:56 Dose: Not Given Mirtazapine (Remeron) 7.5 mg PO HS [facility] Last Admin: 10/13/17 21:58 Dose: 7.5 mg Nitroglycerin (Nitro-Bid 2% Ointment) 0.5 inch TOP Q8HR [facility] Last Admin: 10/14/17 11:53 Dose: Not Given Nitroglycerin (Nitrostat) 0.4 mg PO Q5MIN PRN PRN Reason: Chest Pain Ondansetron HCl (Zofran) 4 mg IVP Q6H PRN PRN Reason: Nausea/Vomiting Last Admin: 10/13/17 11:24 Dose: 4 mg Potassium Chloride (K-Dur) 20 meq PO QAM-[facility] Last Admin: 10/14/17 08:56 Dose: Not Given Pregabalin (Lyrica) 150 mg PO TID [facility] Last Admin: 10/14/17 14:04 Dose: Not Given Sodium Chloride (Flush - Normal Saline) 10 ml IVF Q12HR [facility] Last Admin: 10/14/17 08:48 Dose: 10 ml Sodium Chloride (Flush - Normal Saline) 10 ml IVF PRN PRN PRN Reason: Saline Flush
--- NOTE | 2017-10-15 01:09 | OP ---
DATE OF PROCEDURE: 10/14/2017 OPERATIVE PROCEDURE: Colonoscopic biopsy. PREOPERATIVE DIAGNOSES: A 77-year-old [place] female with anemia, occult gastrointestinal bleeding. The patient is undergoing colonoscopy. POSTOPERATIVE DIAGNOSES: 1. Sigmoid diverticular disease. 2. Hemorrhoids. 3. Focal inflammatory changes in the descending colon, nonspecific biopsy. PROCEDURE IN DETAIL: The patient was placed on her left lateral position and was given sedation by A nesthesia Department. A rectal exam was done before scope was advanced into the rectum. No lesions felt on rectal exam. A Pentax video colonoscope was introduced into the rectum and advanced all the way into the cecum. The prep was excellent. The mucosa appeared normal throughout the colon. The a ppendiceal opening, ileocecal valve, and cecum, no pathology seen. The ascending colon, hepatic flex ure, transverse colon, and splenic flexure, no pathology seen. The descending colon showed focal inf lammatory changes. The findings were nonspecific, this was biopsied. The sigmoid colon showed scatt ered diverticulosis. Rectum showed hemorrhoids.
[2017-10-15] MEDS: Pregabalin 75 MG CAP PO SCH ×3 (01:11→16:47)
[2017-10-15] MEDS: Mirtazapine 15 MG TAB PO SCH (01:13)
[2017-10-15] MEDS: hydrALAZINE 10 MG TAB PO SCH ×2 (01:13→09:02)
--- NOTE | 2017-10-15 05:54 | OP ---
DATE OF PROCEDURE: 10/14/2017 OPEATIVE PROCEDURE: Esophagogastroduodenoscopy. PREOPERATIVE DIAGNOSES: Anemia, occult gastrointestinal bleeding. POSTOPERATIVE DIAGNOSES: Antral gastritis, otherwise, exam was normal. PROCEDURE IN DETAIL: The patient was placed on her left lateral position and was given sedation by A nesthesia Department. A Pentax video gastroscope under direct vision was passed down the oropharynx towards the gastroesophageal junction into stomach and subsequently into the descending duodenum. Th e esophageal mucosa appeared normal throughout the esophagus. At the gastric cardia, the patient fou nd to have focal edema, erythema. The gastric fundus, no pathology seen. The gastric body, no patho logy seen. The gastric antrum showed some focal edema and erythema. The findings indicated that she has gastritis. The duodenal bulb, descending duodenum, no pathology seen. The stomach decompressed and the scope removed.
[2017-10-15] MEDS: Nitroglycerin 2% Ointment 1 INCH/1 GM Packet TOP SCH ×2 (05:58→15:57)
[2017-10-15 08:57] VITALS: TEMP 97.8
[2017-10-15] MEDS: Ferrous Sulfate 325 MG TAB PO SCH ×2 (09:00→16:48)
[2017-10-15] MEDS: Carvedilol 3.125 MG TAB PO SCH (09:00)
[2017-10-15] MEDS: Potassium Chloride 20 MEQ TAB PO SCH (09:00)
[2017-10-15] MEDS: Aspirin 325 MG TAB PO SCH (09:02)
[2017-10-15] MEDS: Famotidine 20 MG TAB PO SCH (09:02)
[2017-10-15] MEDS: Furosemide 40 MG/4 ML VIAL SLOW IVP SCH (09:03)
[2017-10-15] MEDS: Fluticasone Propionate Nasal Spray 16 gm Bottle NASAL SCH (09:04)
[2017-10-15] MEDS: Enoxaparin Sodium 40 MG/0.4 ML SYRINGE SC SCH (09:04)
[2017-10-15] MEDS: HYDROcodone/Acetaminophen 10/325 mg Tablet PO SCH ×2 (09:16→16:48)
[2017-10-15 13:56] LABS: Anion Gap 11 mmol/L (10-20); BUN (Urea Nitrogen) 17 mg/dL (9.8-20.1); Calc. Creatinine Clearance 48 mL/min (70-130); Calcium 8.9 mg/dL (7.8-10.44); Carbon Dioxide 27 mmol/L (23-31); Chloride 102 mmol/L (98-107); Estimated GFR-MDRD 57; Glucose 114 mg/dL (83-110); Magnesium 1.7 mg/dL (1.6-2.6); Potassium 3.4 mmol/L (3.5-5.1); Sodium 137 mmol/L (136-145)
[2017-10-15 15:39] VITALS: BP 106/75
--- NOTE | 2017-10-16 10:32 | DIS ---
BRIEF SUMMARY OF HOSPITAL COURSE: This is a 77-year-old female with a history of multiple myeloma who initially presented with a chief complaint of chest pain. Please see the original history and physical regarding the patient's chest pain. Patient was seen by Cardiology on consultation, underwent an echocardiogram and nuclear stress test. The patient's chest pain was felt to be atypical in nature without evidence for acute coronary syndrome. The patient is felt to have a noncardiac etiology for her chest pain. Patient was seen by Gastroenterology as well for her symptoms and underwent an EGD and colonoscopy. The patient's procedure was delayed due to the patient's dislike for the taste of her bowel preparation regimen. The patient was able to complete an EGD and colonoscopy which demonstrated no acute findings explanatory for her presentation. Patient was noted to have anemia at the time of admission without any overt gastrointestinal bleeding noted, although she did have a guaiac stool returned to be positive. She underwent gastrointestinal evaluation as above. The patient had serial monitoring of her H&H during this hospitalization and has maintained stable H/H and hemodynamics for 48hrs prior to discharge. The remainder of the patient's chronic medical issues is stable during hospitalization. CONSULTATIONS: 1. Oncology 2. Cardiology 3. Gastroenterology MEDICATION RECONCILIATION: Please see the EMR for full details. The patient will continue on her home regimen. DISCHARGE CONDITION: At the time of discharge, the patient is hemodynamically stable. She is tolerating her baseline diet and activity. I have seen and examined the patient on the day of discharge. DISCHARGE INSTRUCTIONS: The patient was asked to follow up closely with her outpatient team including her primary care provider, her oncologist, boss dyer as well. The patient has pending biopsies from her colonoscopy of a polyp. SIGNIFICANT LABORATORY AND IMAGING: On 10/11/2010, echocardiogram, ejection fraction is visually estimated at 60-65%. Grade 1/3 diastolic dysfunction. Mild LVH. Mild mitral regurgitation. Mild tricuspid regurgitation. Mild pulmonic regurgitation. Stress test on 10/12/2017, interpretation negative EKG , stress test intermittent 2:1 AV block with adenosine infusion. On 10/12/2017 , nuclear medicine report with impression "normal myocardial perfusion scan." Thank you for asking me to care for the patient. Questions or concerns, please contact me at [facility]. Greater than 30 minutes were spent coordinating discharge for the patient on the day of discharge. [facility]
[2017-10-18] MEDS ORDERED: Dexamethasone 4 MG TAB PO SCH (09:00)
--- NOTE | 2017-11-07 15:13 | EKG ---
Test Reason : Blood Pressure : / mmHG Vent. Rate : 059 BPM Atrial Rate : 059 BPM P-R Int : 144 ms QRS Dur : 080 ms QT Int : 464 ms P-R-T Axes : 044 -16 025 degrees QTc Int : 459 ms Sinus bradycardia with sinus arrhythmia Voltage criteria for left ventricular hypertrophy Abnormal ECG Confirmed by BHASKAR MAYNARD ([id number]), primer expeditor and drier SITA KING ([id number]) on 11/07/2017 3:12:38 PM Referred By: CAESAR Confirmed By:BHASKAR MAYNARD
--- NOTE | 2017-12-28 15:27 | STRESS ---
Acquisition Time: 2017-10-12 09:51:58 Total Exercise Time: 00:04:00 Test Indications: CHEST PAIN Medications: Protocol: ADENOSINE Max HR: 089 BPM 63% of Pred: 141 BPM Max BP: 124/082 mmHG Max Work Load: 1.0 METS RESTING ECG: SINUS BRADYCARDIA AT 57 BPM WITH INTRAVENTRICULAR CONDUCTION DELAY SYMPTOMS: NONE NORMAL BP RESPONSE ECTOPY: NONE ECG STRESS: NO SIGNIFICANT CHANGES INTERPRETATION: NEGATIVE ECG/AWAIT NUCLEAR IMAGES FOR DEFINITIVE DIAGNOSIS COMMENTS: INTERMITTENT 2:1 AV BLOCK WITH ADENOSINE INFUSION Confirmed by GABRIELA SYKES ELLEN ([id number]) on 12/28/2017 3:26:36 PM Referred By: MD Silke MAURICIO Confirmed By:SHAYNE SYKES PA-C
== END 2017-10-15 17:32 | disposition home or self-care (01) | DRG 378 ==
LOC: ERS 16:54 → 2NO 19:33 → OBSVTOIN 10-11 10:23
PROVIDERS: ADMIT Family Medicine; ATTEND Family Medicine
PROC: 0DJ08ZZ Inspection of Upper Intestinal Tract, Via Natural or Artificial Opening Endoscopic (ICD-10-PCS; principal; 2017-10-14)
PROC: 0DBM8ZX Excision of Descending Colon, Via Natural or Artificial Opening Endoscopic, Diagnostic (ICD-10-PCS; 2017-10-14)
DX: K92.2 Gastrointestinal hemorrhage, unspecified (principal); C90.00 Multiple myeloma not having achieved remission; D62 Acute posthemorrhagic anemia; R07.89 Other chest pain; J01.90 Acute sinusitis, unspecified; D50.9 Iron deficiency anemia, unspecified; Z92.21 Personal history of antineoplastic chemotherapy; K29.70 Gastritis, unspecified, without bleeding; K57.30 Diverticulosis of large intestine without perforation or abscess without bleeding; K64.9 Unspecified hemorrhoids; Z86.718 Personal history of other venous thrombosis and embolism; Z79.01 Long term (current) use of anticoagulants; K21.9 Gastro-esophageal reflux disease without esophagitis
CPT/HCPCS: 36415; 36416; 71045; 71110; 78452; 80048; 80053; 80061; 82274; 82550; 82553; 82728; 83540; 83550; 83690; 83735; 83880; 84484; 85025; 85379; 85610; 85730; 88305; 93005; 93017; 93306; 94760; A4216; A9500; G8978-GP-CJ; G8979-GP-CJ; G8980-GP-CJ; G8987-GO-CL; G8988-GO-CJ; J0153; J1650; J1940; J2001; J2405; J2704; S0028